=== PATIENT | female | born 1995 | race African-American/Black ===

== ENCOUNTER 2020-08-17 11:20 | Outpatient (REF) | payer OTHER, SELFPAY ==
--- NOTE | 2020-08-17 | US_ITS ---
EXAMINATION: US PELVIS, COMPLETE CLINICAL INFORMATION: Complex cyst of right ovary. COMPARISON: 06/29/2020 TECHNIQUE: Transabdominal and transvaginal imaging was performed. FINDINGS: LMP: 08/03/2020. Uterus is anteverted, measuring 9.3 x 3.9 x 5.9 cm. No focal uterine lesion. Endometrial thickness 1.2 cm. Right ovary measures 3.4 x 3.5 x 2.8 cm. Volume 17.5 mL. There is a complex cyst in the right ovary measuring 2.7 x 2.2 x 2.7 cm. There are internal echoes. This includes a linear echogenic focus; the real-time imaging findings and images are discussed with the performing social contact worker, and this was felt to represent internal echoes and not definitely a septation. No significant vascular flow is identified. Overall, the cystic focus is less complex as compared to previous. There is small free fluid noted adjacent to the ovary. Left ovary measures 2.7 x 2.3 x 2.5 cm. Volume 8.1 mL. Left ovary appears unremarkable. Small free fluid in the cul-de-sac. IMPRESSION: 1. Mildly complex right ovarian cyst measuring 2.7 x 2.2 x 2.7 cm. There is interval decrease of the previously noted complexity of the cyst. No significant vascular flow is identified. Recommend short-term followup ultrasound for reassessment. 2. Small free fluid adjacent to the right ovary and in the cul-de-sac.
--- NOTE | 2020-08-17 | US_ITS ---
EXAMINATION: US PELVIS, COMPLETE CLINICAL INFORMATION: Complex cyst of right ovary. COMPARISON: 06/29/2020 TECHNIQUE: Transabdominal and transvaginal imaging was performed. FINDINGS: LMP: 08/03/2020. Uterus is anteverted, measuring 9.3 x 3.9 x 5.9 cm. No focal uterine lesion. Endometrial thickness 1.2 cm. Right ovary measures 3.4 x 3.5 x 2.8 cm. Volume 17.5 mL. There is a complex cyst in the right ovary measuring 2.7 x 2.2 x 2.7 cm. There are internal echoes. This includes a linear echogenic focus; the real-time imaging findings and images are discussed with the performing rock crushing machine operator, and this was felt to represent internal echoes and not definitely a septation. No significant vascular flow is identified. Overall, the cystic focus is less complex as compared to previous. There is small free fluid noted adjacent to the ovary. Left ovary measures 2.7 x 2.3 x 2.5 cm. Volume 8.1 mL. Left ovary appears unremarkable. Small free fluid in the cul-de-sac. IMPRESSION: 1. Mildly complex right ovarian cyst measuring 2.7 x 2.2 x 2.7 cm. There is interval decrease of the previously noted complexity of the cyst. No significant vascular flow is identified. Recommend short-term followup ultrasound for reassessment. 2. Small free fluid adjacent to the right ovary and in the cul-de-sac.
== END 2020-08-17 11:21 | disposition home or self-care (01) ==
LOC: HO.US 11:20
PROVIDERS: PCP Internal Medicine; Visit Provider Obstetrics & Gynecology
DX: N83.291 Other ovarian cyst, right side (principal)
CPT/HCPCS: 76830; 76856

== ENCOUNTER → 2020-09-15 11:49 | Outpatient (BNVA) | payer OTHER, SELFPAY | PROVIDERS: Visit Provider Obstetrics & Gynecology | DX: N83.291 Other ovarian cyst, right side (principal) | CPT/HCPCS: 99212 ==

== ENCOUNTER 2020-11-03 08:59 | Outpatient (REF) | payer OTHER, SELFPAY ==
[2020-11-03 11:47] LABS: HCG Quantitative 4280 mIU/mL
== END 2020-11-03 09:00 | disposition home or self-care (01) ==
LOC: HO.LAB 08:59
PROVIDERS: PCP Internal Medicine; Visit Provider Advanced Practice Midwife
DX: O34.81 Maternal care for other abnormalities of pelvic organs, first trimester (principal); N83.299 Other ovarian cyst, unspecified side; O09.11 Supervision of pregnancy with history of ectopic pregnancy, first trimester
CPT/HCPCS: 81025; 84702; 99212

== ENCOUNTER 2020-11-06 08:30 | Outpatient (REF) | payer OTHER, SELFPAY ==
[2020-11-06 09:11] LABS: HCG Quantitative 9925 mIU/mL
== END 2020-11-06 08:31 | disposition home or self-care (01) ==
LOC: HO.LAB 08:30
PROVIDERS: PCP Internal Medicine; Visit Provider Advanced Practice Midwife
DX: Z87.59 Personal history of other complications of pregnancy, childbirth and the puerperium (principal)
CPT/HCPCS: 84702

== ENCOUNTER 2020-11-16 13:12 | Outpatient (REF) | payer OTHER, SELFPAY ==
--- NOTE | 2020-11-16 | US_ITS ---
EXAMINATION: US PELVIS CLINICAL INFORMATION: History of ectopic and right salpingectomy COMPARISON: Ultrasound pelvis 08/17/2020 and 06/29/2020 TECHNIQUE: Ultrasound of the pelvis is performed using both transabdominal and transvaginal transducers along with Doppler. Transvaginal imaging is performed due to inadequate visualization transabdominally. FINDINGS: The uterus is anteverted with intrauterine gestational sac and live fetus. The crown-rump length measures 0.93 cm corresponding to 7 weeks and 0 days and ROBERT of 07/05/2021. There is visualization of yolk sac, motion and heart beat. The heart rate is 149 bpm. The right ovary measures 2.3 x 1.8 x 2.3 cm and appears unremarkable. The left ovary measures 3.6 x 2.5 x 3.1 cm. There is a small corpus luteal cyst measuring 2.2 x 1.4 x 2.0 cm and a simple cyst measuring 1.6 x 1.1 x 1.3 cm. There is a small amount of free fluid in the pelvis. US/US OB <= 14 weeks fetus IMPRESSION: Single live intrauterine fetus within ultrasound gestational age of 7 weeks 0 days and ROBERT of 07/05/2021. heart rate is 149 bpm. There is a simple cyst and a corpus luteal cyst in left ovary. Uterine fibroid seen on the previous ultrasound exam 06/29/2020 is not visualized at the present exam.
--- NOTE | 2020-11-16 14:00 | US_ITS ---
EXAMINATION: US PELVIS CLINICAL INFORMATION: History of ectopic and right salpingectomy COMPARISON: Ultrasound pelvis 08/17/2020 and 06/29/2020 TECHNIQUE: Ultrasound of the pelvis is performed using both transabdominal and transvaginal transducers along with Doppler. Transvaginal imaging is performed due to inadequate visualization transabdominally. FINDINGS: The uterus is anteverted with intrauterine gestational sac and live fetus. The crown-rump length measures 0.93 cm corresponding to 7 weeks and 0 days and ROBERT of 07/05/2021. There is visualization of yolk sac, motion and heart beat. The heart rate is 149 bpm. The right ovary measures 2.3 x 1.8 x 2.3 cm and appears unremarkable. The left ovary measures 3.6 x 2.5 x 3.1 cm. There is a small corpus luteal cyst measuring 2.2 x 1.4 x 2.0 cm and a simple cyst measuring 1.6 x 1.1 x 1.3 cm. There is a small amount of free fluid in the pelvis. US/US transvaginal IMPRESSION: Single live intrauterine fetus within ultrasound gestational age of 7 weeks 0 days and ROBERT of 07/05/2021. heart rate is 149 bpm. There is a simple cyst and a corpus luteal cyst in left ovary. Uterine fibroid seen on the previous ultrasound exam 06/29/2020 is not visualized at the present exam.
== END 2020-11-16 13:13 | disposition home or self-care (01) ==
LOC: HO.US 13:12
PROVIDERS: Visit Provider Advanced Practice Midwife
DX: O09.11 Supervision of pregnancy with history of ectopic pregnancy, first trimester (principal); Z3A.00 Weeks of gestation of pregnancy not specified
CPT/HCPCS: 76801; 76817; 76830

== ENCOUNTER → 2020-11-17 10:16 | Outpatient (BNVA) | payer OTHER, SELFPAY | PROVIDERS: PCP Internal Medicine; Visit Provider Advanced Practice Midwife | DX: Z76.89 Persons encountering health services in other specified circumstances (principal) ==

== ENCOUNTER 2020-11-24 16:07 | Emergency (ER) | payer OTHER, SELFPAY ==
[2020-11-24 16:09] VITALS: BP 120/71; PULSE 74; RESP 16; TEMP 36.9; O2SAT 100; BMI 25.7
--- NOTE | 2020-11-24 16:25 | ED.NAVMDI ---
HPI - Nausea/Vomiting/Diarrhea General Chief complaint: Nausea/Vomiting/Diarrhea Stated complaint: vomiting in first trimester Time Seen by Provider: 11/24/20 16:23 Source: patient Mode of arrival: ambulatory Limitations: no limitations History of Present Illness HPI Narrative: 25 y/o female (hx ectopic) who is currently 8 weeks with a IUP who presents with severe persistent nausea. She vomited x1 this morning but has been unable to eat. She had a recent telehealth visit on 11/17 and was prescribed Unisom which she has been taking intermittently. She admits to not taking it last night because when she takes it on an empty stomach it makes her more nauseated. She denies vaginal bleeding, discharge, or abdominal pain. No fever, chills, SOB, or COVID symptoms. MD elicited complaint: nausea Related Data Home Medications Medication Instructions Recorded Confirmed prenat.vits,blanca,[id number] 1 tab PO DAILY 11/17/20 Previous Rx's Medication Instructions Recorded doxylamine succinate 25 mg tablet 12.5 mg PO BEDTIME #30 tab 11/17/20 pyridoxine (vitamin B6) 25 mg 25 mg PO TID #90 tab 11/17/20 tablet ondansetron HCl [Zofran] 4 mg PO Q8H PRN #6 tab 11/24/20 Allergies Allergy/AdvReac Type Severity Reaction Status Date / Time No Known Allergies Allergy Verified 11/17/20 10:18 [No Known Allergies*] Review of Systems Review of Systems: Constitutional: No Fever, No Chills ENT/Mouth: No sore throat Cardiovascular: No Chest Pain, No SOB Respiratory: No Cough, No Sputum, No Wheezing, No dyspnea Gastrointestinal: + Nausea, + Vomiting, No Diarrhea, No abdominal Pain, No Hematochezia, No Melena Genitourinary: No Dysuria, No Urinary Frequency, No Hematuria, No vaginal bleeding Musculoskeletal: No joint pain, No Myalgias Skin: No Skin Lesions, No rash Neuro: No Weakness, No Numbness, No Dizziness, No Headache Psych: + Anxiety/Panic, No Depression [facility] Past Medical History Attestation statement: The following information was validated with the patient. Social History Social History Alcohol intake: current Alcohol intake frequency: holidays/special occasions only Smoking Status: Never smoker Advance Directives: No Advance Directives Information Provided: Yes Sexual orientation: Straight/Heterosexual Gender identity: female Physical Exam Vital Signs: Vital Signs: Last Vital Signs Temp 98.5 F 11/24/20 16:09 Pulse 74 11/24/20 16:09 Resp 16 11/24/20 16:09 BP 120/71 11/24/20 16:09 Pulse Ox 100 11/24/20 16:09 Body Mass Index 25.7 Appearance: Alert. Oriented X3. No acute distress. Eyes: Pupils equal, round and reactive to light. ENT: Pharynx normal. Neck: Normal inspection. Neck supple. CVS: Normal heart rate and rhythm. Pulses normal. Respiratory: No respiratory distress. Breath sounds normal. Abdomen: Soft and nontender. +BS x4 Skin: Skin warm and dry. Normal skin color. Normal skin turgor. No rashes. Extremities: No lower extremity edema. Neuro: Oriented X 3. No motor deficit. No sensory deficit. Course Course Course Narrative: 25 y/o female 8 weeks presenting with N/V. Will check labs, including Chem 10, CBC, LFTs, UA and HCG quant. will give IVF and Zofran now and reassess. Reevaluation(s) Reevaluation #1: No vomiting. Given PO trial now. Patient counseled. Signed out to Radha Sim PA-C who will plan to d/c patient home if tolerating PO and labs are unremarkable. MDM - Nausea/Vomiting/Diarrhea Lab Data Result diagrams: 11/24/20 16:33 11/24/20 16:33 Labs: Lab Results 11/24/20 Range/Units 16:33 WBC 8.6 (4.8-10.8) X10*3/uL RBC 4.70 (4.20-5.50) X10*6/uL Hgb 11.8 L (12.0-16.0) g/dl Hct 36.7 L (37-47) % MCV 78.1 L (80-98) fL MCH 25.1 L (27.0-33.0) pg MCHC 32.2 (31.0-35.0) g/dl RDW 12.3 (11.0-16.0) % Plt Count 394 (160-400) X10*3/uL MPV 9.4 (9.4-12.3) fL Immature Gran % (Auto) 0.3 (0.0-0.4) % Neut % (Auto) 66.8 (45-73) % Lymph % (Auto) 23.8 (20-40) % Butler % (Auto) 7.0 (2-11) % Eos % (Auto) 1.6 (0-4) % Baso % (Auto) 0.5 (0-2) % Lymph # (Auto) 2.1 (1.2-4.9) X10*3/uL Butler # (Auto) 0.6 (0.1-1.2) X10*3/uL Eos # (Auto) 0.1 (0.0-0.4) X10*3/uL Baso # (Auto) 0.0 (0.0-0.2) X10*3/uL Abs Immat Gran (auto) 0.03 (0.00-0.03) X10*3/uL Absolute Neuts (auto) 5.7 (2.0-8.3) X10*3/uL Absolute Nucleated RBC 0.000 (0.0-0.012) X10*3/uL Nucleated RBC % (auto) 0.0 (0.0-0.2) /100WBC Discharge Plan Discharge Clinical Impression: Nausea and vomiting during prior to 22 weeks gestation Patient Disposition: Home, Self-Care Instructions: Nausea and Vomiting in (ED), First Trimester (ED) Additional Instructions: You lab workup today was unremarkable. When you wake up in the morning, eat a saltine cracker before you get out of bed. Continue to take the Unisom and vitamins to help prevent nausea. Try taking Benadryl as needed for nausea. Try juli hard candies or mints. Take the prescribed nausea medications as needed. Follow up with your OB this week. If you have persistent vomiting and are unable to keep any food or liquids down come back to the ER for further evaluation. Prescriptions: New ondansetron HCl [Zofran] 4 mg tablet 4 mg PO Q8H PRN (Reason: nausea and vomiting) Qty: 6 RF: 0 No Action prenat.vits,blanca,[id number] Tablet 1 tab PO DAILY RF: 0 Unisom (doxylamine) 25 mg tablet 12.5 mg PO BEDTIME Qty: 30 RF: 0 pyridoxine (vitamin B6) 25 mg tablet 25 mg PO TID Qty: 90 RF: 0 Stand Alone Forms: Work/School Release
[2020-11-24] MEDS: 0.9 % Sodium Chloride 1,000 ML 999 ML IVCONT (16:34)
[2020-11-24] MEDS: ondansetron HCL 4 MG/2 ML VIAL IVPUSH (16:37)
--- NOTE | 2020-11-24 16:38 | PC.NURSE ---
IV inserted and labs obtained/sent to lab. Pt medicated for nausea.
[2020-11-24 16:53] LABS: MANUAL DIFF FLAG NO
[2020-11-24 17:02] LABS: Basophils Percent Auto 0.5 % (0-2); Eosinophils Absolute Auto 0.1 X10*3/uL (0.0-0.4); Eosinophils Percent Auto 1.6 % (0-4); Hematocrit 36.7 % (37-47); Hemoglobin 11.8 g/dl (12.0-16.0); Imm Gran Abs Auto 0.03 X10*3/uL (0.00-0.03); Imm Gran Pct Auto 0.3 % (0.0-0.4); Lymphocytes Absolute Auto 2.1 X10*3/uL (1.2-4.9); Lymphocytes Percent Auto 23.8 % (20-40); Mean Corpuscular HGB Conc 32.2 g/dl (31.0-35.0); Mean Corpuscular Hemoglobin 25.1 pg (27.0-33.0); Mean Corpuscular Volume 78.1 fL (80-98); Mean Platelet Volume 9.4 fL (9.4-12.3); Monocytes Absolute Auto 0.6 X10*3/uL (0.1-1.2); Neutrophils Absolute Auto 5.7 X10*3/uL (2.0-8.3); Neutrophils Percent Auto 66.8 % (45-73); Platelet Count 394 X10*3/uL (160-400); Red Cell Distribution Width 12.3 % (11.0-16.0); White Blood Count 8.6 X10*3/uL (4.8-10.8)
[2020-11-24 17:30] LABS: Alanine Aminotransferase 19 U/L (0-31); Albumin Level 4.1 g/dL (3.5-5.0); Alkaline Phosphatase 81 U/L (39-117); Anion Gap 15 (12-20); Aspartate Amino Transferase 20 U/L (5-31); Bilirubin Direct < 0.2 mg/dL (0.0-0.5); Bilirubin Total 0.3 mg/dL (0.0-1.0); Blood Urea Nitrogen 9 mg/dL (9-16); Calcium 8.7 mg/dL (8.4-10.2); Carbon Dioxide 22 mmol/L (22-29); Chloride 99 mmol/L (96-108); Creatinine Clr Calc Pharmacy 106.4; Estimated Glomerular Filt Rate > 60; Glucose Random 88 mg/dL (60-115); Potassium 4.1 mmol/l (3.3-5.1); Sodium 132 mmol/L (135-145); Total Protein 6.9 g/dL (6.5-8.0)
[2020-11-24 18:50] LABS: Glucose Urine UA NEG (NEG); Leukocyte Esterase Urine NEG (NEG); Nitrite Urine NEG (NEG); PH 6.5 (5.0-8.0); Specific Gravity - Urine 1.025 (1.005-1.025); Urine Blood NEG (NEG); Urine Ketones 15 MG/DL (NEG); Urine Protein NEG (NEG-TRACE)
[2020-11-24 18:54] LABS: Appearance Urine CLEAR; Color Urine YELLOW
[2020-11-24 19:03] VITALS: BP 107/60; PULSE 89; RESP 18; TEMP 37.2; O2SAT 100
== END 2020-11-24 20:02 | disposition home or self-care (01) ==
PROVIDERS: Physician Assistant; Physician Assistant Medical; Emergency Provider Internal Medicine
DX: O21.0 Mild hyperemesis gravidarum (principal); Z3A.08 8 weeks gestation of pregnancy; Z79.899 Other long term (current) drug therapy
CPT/HCPCS: 36415; 80048; 80076; 81003; 83735; 84702; 85025; 96361; 96374; 99283; 99284; J2405

== ENCOUNTER 2020-12-13 10:28 | Outpatient (REF) | payer OTHER, SELFPAY ==
--- NOTE | ~2020-12-13 | US_ITS ---
EXAMINATION: FIRST TRIMESTER OB ULTRASOUND CLINICAL INFORMATION: Ovarian cyst COMPARISON: Previous exam 11/16/2020 TECHNIQUE: Transabdominal first trimester OB ultrasound FINDINGS: There is an intrauterine gestational sac. [place]-rump length measures 4 cm suggesting gestational age of 11 weeks 0 days with estimated date of delivery of 07/04/2021. This agrees with date from previous exam. heart rate is 163 bpm. There is no yolk sac. There is a small fibroid in the fundus of the uterus measuring 1.4 x 1.2 x 1.4 cm. The right maternal ovary is normal-appearing and measures 2.5 x 1.6 x 1.8 cm. Left ovary measures 2.6 x 1.5 x 2.7 cm. There is a 2 x 1.4 x 1.8 cm complex cyst seen in the left ovary. This is slightly decreased in size from previous exam when this measured 2.2 x 1.4 x 2 cm, has a more oval than round shape, has a slightly thickened irregular wall, and increased internal echoes. This appears less vascular than seen on 11/16/2020 exam. There is an adjacent 1.4 x 1 x 1.4 cm simple cyst that appears unchanged. There is no fluid in the pelvis. US/US OB <= 14 weeks fetus IMPRESSION: Single viable intrauterine . From today's measurements, gestational age is estimated at 11 weeks 0 days with estimated date of delivery of 07/04/2021. Slight interval decrease in size in the complex left ovarian cyst from 11/16/2020. The adjacent smaller simple cyst does not appear appreciably changed.
== END 2020-12-13 10:29 | disposition home or self-care (01) ==
LOC: HO.US 10:28
PROVIDERS: Visit Provider Obstetrics & Gynecology
DX: N83.299 Other ovarian cyst, unspecified side (principal)
CPT/HCPCS: 76801

== ENCOUNTER → 2020-12-21 12:02 | Outpatient (BNVA) | payer OTHER, SELFPAY | PROVIDERS: PCP Internal Medicine; Visit Provider Obstetrics & Gynecology ==

== ENCOUNTER 2022-05-16 15:40 | Outpatient (REF) | payer OTHER, SELFPAY ==
[2022-05-17 11:04] LABS: BV Int Neg Control Negative (Negative)
[2022-05-17 11:05] LABS: BV Int Pos Control Positive (Positive)
[2022-05-17 12:05] LABS: CT PCR NOT DETECTED (Not Detect.); NG PCR NOT DETECTED (Not Detect.)
[2022-05-23 02:52] LABS: HPV 16 RNA NOT DETECTED (NOT DETECTED); HPV mRNA E6/E7 rflx Detected (Not Detected)
== END 2022-05-16 15:41 | disposition home or self-care (01) ==
LOC: HO.LAB 15:40
PROVIDERS: Visit Provider Advanced Practice Midwife
DX: Z01.419 Encounter for gynecological examination (general) (routine) without abnormal findings (principal); Z11.3 Encounter for screening for infections with a predominantly sexual mode of transmission; Z11.51 Encounter for screening for human papillomavirus (HPV)
CPT/HCPCS: 87480; 87491; 87510; 87591; 87624; 87625; 87660; 88142

== ENCOUNTER 2022-05-17 14:00 | Outpatient (REF) | payer OTHER, SELFPAY ==
[2022-05-17 14:24] LABS: Binax Now Covid-19 Ag Negative (Negative)
[2022-05-17 14:25] LABS: Binax Internal Control QC Valid; Binax Performed by: HO.BONILM
== END 2022-05-17 14:01 | disposition home or self-care (01) ==
LOC: HO.HMGCLDS 14:00
PROVIDERS: PCP Internal Medicine; Visit Provider Physician Assistant
DX: Z20.822 Contact with and (suspected) exposure to COVID-19 (principal); J30.2 Other seasonal allergic rhinitis; J02.9 Acute pharyngitis, unspecified
CPT/HCPCS: 87811; C9803